=== PATIENT | male | born 1965 | race Caucasian/White ===

== ENCOUNTER 2020-01-19 17:24 | Emergency (ER) | payer SELFPAY ==
[2020-01-19 17:26] VITALS: PULSE 90; RESP 18; TEMP 36.9; O2SAT 96; BMI 22.1
[2020-01-19 18:29] VITALS: O2SAT 94
--- NOTE | 2020-01-19 18:39 | PC.NURSE ---
nurse and er physician in room to check on patient and found pt and spouse to be gone
== END 2020-01-19 18:38 | disposition left against medical advice (07) ==
LOC: ER 18:34
PROVIDERS: Emergency Provider Emergency Medicine
DX: Z53.21 Procedure and treatment not carried out due to patient leaving prior to being seen by health care provider (principal)
CPT/HCPCS: 99282

== ENCOUNTER 2020-01-29 15:45 | Emergency (ER) | payer SELFPAY ==
[2020-01-29 16:00] VITALS: BP 147/86; PULSE 81; RESP 14; TEMP 36.7; O2SAT 97; BMI 22.1
== END 2020-01-29 18:11 | disposition left against medical advice (07) ==
PROVIDERS: Emergency Provider Physician Assistant
DX: Z53.21 Procedure and treatment not carried out due to patient leaving prior to being seen by health care provider (principal)
CPT/HCPCS: 99281

== ENCOUNTER → 2022-04-28 15:16 | Outpatient (BNVA) | payer MEDICAID, SELFPAY | PROVIDERS: Referring Provider Nurse Practitioner; Visit Provider Orthopaedic Surgery | DX: M54.9 Dorsalgia, unspecified (principal); M47.22 Other spondylosis with radiculopathy, cervical region; M48.02 Spinal stenosis, cervical region; M48.061 Spinal stenosis, lumbar region without neurogenic claudication; M47.816 Spondylosis without myelopathy or radiculopathy, lumbar region | CPT/HCPCS: 72050; 72110 ==

== ENCOUNTER 2022-06-11 07:19 | Outpatient (CLI) | payer MEDICAID, SELFPAY ==
--- NOTE | 2022-06-11 08:00 | MR_ITS ---
WS: [id number] MRI CERVICAL SPINE NONCONTRAST HISTORY: Chronic neck pain radiating to both arms. COMPARISON: Cervical radiograph 04/28/2022 Technique: Multiplanar, multisequence noncontrast imaging of the cervical spine. Retrolisthesis of the mid cervical spine. C4 retrolisthesis by 2.5 mm. Marrow edema and a large porti on of the C4 and C5 vertebral bodies. Disc spaces are all moderately narrowed. Signal within the cervical cord is normal. Visualized posterior fossa is unremarkable. Craniocervical junction, C1 and C2 relationship, odontoid process and soft tissues are normal. C2-C3: RIGHT foraminal osteophyte and facet disease resulting in moderate RIGHT foraminal stenosis. C3-C4: Osteophytic ridging and annular disc bulging and facet joint arthritis resulting in mild centr al and LEFT foraminal stenosis. Moderate RIGHT foraminal stenosis. Increased edema RIGHT facets from synovitis. C4-C5: Mild disc bulging and osteophytic ridging. Mild bilateral facet joint arthritis. Mild central with [id number] foraminal stenosis. C5-C6: Osteophytic ridging with annular disc bulge. No focal protrusion. Mild central with moderate f oraminal stenosis. C6-C7: Diffuse osteophytic ridging encroaching upon the ventral thecal sac with mild facet joint arth ritis. Moderate to severe bilateral foraminal stenosis. C7-T1: Very mild facet and foraminal narrowing. Paraspinal soft tissue are normal. MR/MR cervical spin wo con* [id number] IMPRESSION: 1. Multilevel degenerative disc disease and facet joint arthritis. Multilevel stenoses due to combination of osteophyte, disc and facet disease. 2. Moderate RIGHT foraminal stenosis at C2-3. 3. Moderate RIGHT foraminal stenosis at C3-4 with mild central LEFT foraminal stenosis. 4. Mild central with mild to moderate foraminal stenosis at C4-5. 5. Moderate foraminal stenosis with mild central stenosis at C5-6. 6. Moderate to severe bilateral foraminal stenosis at C6-7.
--- NOTE | 2022-06-11 09:30 | MR_ITS ---
WS: [id number] MRI LUMBAR SPINE NONCONTRAST HISTORY: back pain COMPARISON: None available. TECHNIQUE: Sagittal and axial multisequence imaging is submitted. Mild RIGHT curvature lumbar spine. No fractures or marrow edema. Disc spaces are well preserved with only mild desiccation. Conus terminates normally at L1. L1-L2: Normal. L2-L3: Mild annular disc bulging and facet joint arthritis. There is mild narrowing and encroachment upon the exiting L2 nerve roots. No high-grade stenosis. L3-L4: Mild disc bulging. Moderate ligamentum flavum and facet arthritis. There is significant encroa chment upon the exiting nerve roots, LEFT greater than RIGHT. Moderate LEFT and mild RIGHT foraminal stenosis. L4-L5: Moderate facet joint arthritis and ligamentum flavum disease. No focal disc protrusions. Mild RIGHT and moderate LEFT foraminal stenosis. There may be a very tiny disc protrusion contributing to the LEFT foraminal stenosis. L5-S1: Mild disc bulging with a central to LEFT paracentral disc protrusion contacting the thecal sac . No significant contact on the nerve roots. Mild annular fissure. No significant foraminal stenosis. No paravertebral soft tissue abnormalities. MR/MR lumbar spine wo con* [id number] IMPRESSION: 1. Mild RIGHT curvature lumbar spine. 2. Very minimal degenerative disc disease with more advanced facet joint and l igamentum flavum arthritis of the lumbar spine. 3. Moderate LEFT and mild RIGHT foraminal stenosis at L3-4 predominantly due t o facet joint arthritis. 4. Moderate LEFT and mild RIGHT foraminal stenosis at L4-5. 5. Central to LEFT paracentral disc protrusion at L5-S1 with mild contact upon the thecal sac.
== END 2022-06-11 07:20 | disposition home or self-care (01) ==
LOC: RAD 07:23
PROVIDERS: Visit Provider Orthopaedic Surgery
DX: M54.9 Dorsalgia, unspecified (principal)
CPT/HCPCS: 72141; 72148

== ENCOUNTER 2022-06-30 15:07 | Outpatient (CLI) | payer MEDICAID, SELFPAY | END 2022-06-30 15:08 | disposition home or self-care (01) | LOC: SPT 15:08 | PROVIDERS: Visit Provider Orthopaedic Surgery | DX: Z46.89 Encounter for fitting and adjustment of other specified devices (principal); M47.12 Other spondylosis with myelopathy, cervical region | CPT/HCPCS: 97760; L0172 ==

== ENCOUNTER 2022-07-15 05:37 | Day surgery (SDC) | payer MEDICAID, SELFPAY ==
[2022-07-10 09:43] VITALS: BMI 20.7
--- NOTE | 2022-07-10 10:01 | ANES.PREANE2 ---
Pre-Anesthetic Assessment Height/Weight: Height 1.75 m Weight 63.503 kg Preop Diagnosis: Cervical spondylosis with radiculopathy Operation Date: 07/15/22 07:00 Proposed Procedures p Anterior Cervical Discectomy & Fusion:[id number], M47.12(Not Applicable) - Jose Alfredo Hernández DO s Cervical Decompression(Not Applicable) - Jose Alfredo Hernández, Familial anesthetic complications: NOne Social Alcohol (6 pack beer a night) and Tobacco Exam alert, oriented x 3, clear to auscultation bilaterally and regular rate & rhythm Airway Mallampati: Class II Dentition: chipped and loose Pulmonary Chronic Obstructive Pulmonary Disease CV/HEM Hypertension None reported Hepatic None reported GI None reported Metabolic None reported Musc/skel Lower Back Pain Neuropsych None reported Anesthetic Plan ASA status: 3 Anesthesia: General Risk of > 500 ml blood loss (7ml/kg in children): No Medications/Allergies Home Medications Medication Instructions Recorded Confirmed Last Taken Type gabapentin 100 mg capsule 100 mg PO TID 04/28/22 07/10/22 07/10/22 History lisinopril 20 mg tablet 20 mg PO DAILY 04/28/22 07/10/22 07/10/22 History Cervical Collar #1 ea 06/30/22 06/30/22 Unknown Rx Intraoperative Neuromonitoring #1 ea 06/30/22 06/30/22 Unknown Rx hydrocodone 5 mg-acetaminophen 325 1 tab PO Q6H PRN pain 7 days #30 06/30/22 07/10/22 07/10/22 Rx mg tablet tabs cetirizine 10 mg tablet 10 mg PO DAILY 07/10/22 07/10/22 07/10/22 History clindamycin HCl 300 mg capsule 300 mg PO TID 07/10/22 07/10/22 07/10/22 History Allergies Allergy/AdvReac Type Severity Reaction Status Date / Time No Known Allergies Allergy Verified 06/30/22 08:57 PFSH Anesthesia Social History Smoking and tobacco status: current every day smoker Data Anesthesia Cardiac Studies: No Data to Display
[2022-07-10 10:37] LABS: Blood Urea Nitrogen 16 mg/dL (6-20); Calcium 9.5 mg/dL (8.5-10.5); Carbon Dioxide 24 mmol/L (22-29); Chloride 100 mmol/L (98-107); Glucose 134 mg/dL (65-115); Osmolality Calculated 283 mOsm/kg (285-295); Sodium 135 mmol/L (136-145)
[2022-07-10 10:38] LABS: Anion Gap 15.5 (5-19); Potassium 4.5 mmol/L (3.5-5.1)
[2022-07-15] VITALS (14 sets, daily range): BP systolic 90–147; BP diastolic 54–97; PULSE 73–99; RESP 14–18; TEMP 36.6–36.8; O2SAT 92–97
[2022-07-15] MEDS: sodium chloride 0.9% 1,000 ML 30 ML IV (06:16)
--- NOTE | 2022-07-15 06:39 | W.PM.OPSUD ---
Surgery/Procedure H&P Update DATE OF PROCEDURE: July 15, 2022 DATE H&P PERFORMED: 06/30/22 H&P UPDATE INFORMATION: I have reviewed H&P completed within last 30 days, I have examined patient prior to procedure and No changes to prior documentation PREOP DIAGNOSIS: Cervical spondylosis with radiculopathy PLANNED PROCEDURE: Operation Date: 07/15/22 07:00 Proposed Procedures p Anterior Cervical Discectomy & Fusion:[id number], M47.12(Not Applicable) - DO javier Chow Cervical Decompression(Not Applicable) - Jose Alfredo Hernández DO
[2022-07-15] MEDS: ceFAZolin 2,000 MG in sodium chloride 0.9% (plus) 50 ML 100 MG IV (07:02)
[2022-07-15] MEDS: lidocaine-epi 1% 20 mL INJ INJECTION (07:33)
--- NOTE | 2022-07-15 09:27 | XR_ITS ---
WS: [id number] XR cervical spine 1V [id number] REASON FOR EXAM: or pics FINDINGS: Intraoperative images. Anterior plate and screw fixation C4-C7 with interbody fusion devices at C4-5, C5-C6, and C6-C7. Surgical appliances are in proper position and alignment. XR/XR cervical spine 1V [id number] IMPRESSION: Postoperative cervical spine as above without abnormality.
--- NOTE | 2022-07-15 09:35 | PM.OP ---
Operative Report Date of procedure: July 15, 2022 Pre-op diagnosis: Preop Diagnosis Cervical spondylosis with radiculopathy Post-op diagnosis: same Post-op findings: same Procedure done: 1. Anterior diskectomy C4/5 2. Anterior diskectomy C5/6 3. Anterior discectomy C6/7 4. Insertion of cage C4/5 5. Insertion of cage C5/6 6. Insertion of Cage C6/7 7. Instrumentation with anterior plate from C4-C7 8. Use of allograft Surgeon: Jose Alfredo Hernández [employer]: Dedrick Perez [employer]: The surgical services manager, Dedrick Perez, PAC was needed for his expertise under the microscope. He was important and necessary throughout the procedure to complete in a safe and timely manner. He assisted with patient positioning prepping and draping tissue retraction suctioning of the operative field protection of the dural sac and tissue closure Estimated blood loss (mL): 25 Procedure: 1. Anterior diskectomy C4/5 2. Anterior diskectomy C5/6 3. Anterior discectomy C6/7 4. Insertion of cage C4/5 5. Insertion of cage C5/6 6. Insertion of Cage C6/7 7. Instrumentation with anterior plate from C4-C7 8. Use of allograft The patient was taken to the operating room, where he underwent general endotracheal anesthesia without complications. He was then positioned supine on the operating table, and all areas of impingement were well padded. The arms were carefully padded and tucked at his sides. A roll was placed between the shoulder blades.. An x-ray was done to determine the appropriate level for the skin incision. The entire neck was then sterilely prepped and draped in the usual fashion. Neuromonitoring was attached prior to prepping. A transverse skin incision was made and carried down to the platysma muscle. This was then split in line with its fibers. Blunt dissection was carried down medial to the carotid sheath and lateral to the trachea and esophagus until the anterior cervical spine was visualized. A needle was placed into a disc and an x-ray was done to determine its location. The longus colli muscles were then elevated bilaterally with the electrocautery unit. Self-retaining retractors were placed deep to the longus colli muscle. Attention was brought to the C4/5 level that was confirmed on x-ray. A caspar pin was placed into the C4 vertebrae and the C5 vertebrae. The disk space was then distracted. The microscope was then brought in. A radical anterior discectomies were performed at C4/5. This included complete removal of the anterior annulus, nucleus, and posterior annulus. The posterior longitudinal ligament was removed as were the posterior osteophytes. Foraminotomies were then accomplished bilaterally. This was done using a high speed raúl, kerrison rongeurs and curretes Once all of this was accomplished, the curved currette was used to check for any residual compression. The central canal was wide open as were the foramen. A high-speed bur was used to remove the cartilaginous endplates above and below the interspace. Bleeding cancellous bone was exposed. The disc space were measured and appropriate size cage were placed sterilely onto the field. Allograft graft was packed into the cages. The cage was then placed and there was good juxtaposition against the bleeding decorticated surfaces and good distraction of each interspace. Attention was brought to the next interspace. The Leakey pins were removed. Bone wax was used to prevent any bleeding from occurring at the pin sites. Attention was brought to the C5/6 level that was confirmed on x-ray. A caspar pin was placed into the C5 vertebrae and the C6 vertebrae. The disk space was then distracted. The microscope was then brought in. A radical anterior discectomies were performed at C5/6. This included complete removal of the anterior annulus, nucleus, and posterior annulus. The posterior longitudinal ligament was removed as were the posterior osteophytes. Foraminotomies were then accomplished bilaterally. This was done using a high speed raúl, kerrison rongeurs and curretes Once all of this was accomplished, the curved currette was used to check for any residual compression. The central canal was wide open as were the foramen. A high-speed bur was used to remove the cartilaginous endplates above and below the interspace. Bleeding cancellous bone was exposed. The disc space were measured and appropriate size cage were placed sterilely onto the field. Allograft graft was packed into the cages. The cage was then placed and there was good juxtaposition against the bleeding decorticated surfaces and good distraction of each interspace. Attention was brought to the next interspace. The Leakey pins were removed. Bone wax was used to prevent any bleeding from occurring at the pin sites. Attention was brought to the C6/7 level that was confirmed on x-ray. A caspar pin was placed into the C6 vertebrae and the C7 vertebrae. The disk space was then distracted. The microscope was then brought in. A radical anterior discectomies were performed at C6/7. This included complete removal of the anterior annulus, nucleus, and posterior annulus. The posterior longitudinal ligament was removed as were the posterior osteophytes. Foraminotomies were then accomplished bilaterally. This was done using a high speed raúl, kerrison rongeurs and curretes Once all of this was accomplished, the curved currette was used to check for any residual compression. The central canal was wide open as were the foramen. A high-speed bur was used to remove the cartilaginous endplates above and below the interspace. Bleeding cancellous bone was exposed. The disc space were measured and appropriate size cage were placed sterilely onto the field. Allograft graft was packed into the cages. The cage was then placed and there was good juxtaposition against the bleeding decorticated surfaces and good distraction of each interspace. Attention was brought to the next interspace. The Leakey pins were removed. Bone wax was used to prevent any bleeding from occurring at the pin sites. The appropriate size anterior cervical locking plate was chosen and bent into gentle lordosis. Two screws were then placed into each of the vertebral bodies at C4,C5,C6 and C7. There was excellent purchase. A final x-ray was done confirming good position of the hardware and Cages. The locking screws were then applied, also with excellent purchase. Following a final copious irrigation, there was good hemostasis and no dural leaks. The carotid pulse was strong. The wounds were then closed in layers using 2-0 Vicryl suture for the platysma muscle, 2-0 Vicryl suture for the subcutaneous tissue, and 4-0 monocryl suture in a subcuticular skin closure. Glue was placed followed by application of a sterile dressing. The drain was hooked to bulb suction. A soft collar was applied. The patient was then carefully returned to the supine position on his hospital bed where he was reversed and extubated and taken to the recovery room having tolerated the procedure well.
--- NOTE | 2022-07-15 09:43 | P.PCN_ITS ---
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
--- NOTE | 2022-07-15 09:43 | PM.PACU ---
PACU note Narrative: VSS, Good respiratory effort, report to CRM SPECIALIST Exam: awake
[2022-07-15] MEDS: fentaNYL 50 mcg/mL INJ 2mL IVP (10:00)
--- NOTE | 2022-07-15 10:03 | P.ANESUD_ITS ---
Pre-Anesthetic Update Pre-Anesthetic Assessment: Date of Surgery/Procedure: 07/15/22 Preop Yesi gnosis: Cervical spondylosis with radiculopathy Proposed Procedure: Operation Date: 07/15/22 07:00 Proposed Procedures p Anterior Cervical Discectomy & Fusion:[id number], M47.12(Not Applicable) - Jose Alfredoaudie Hernández, DO s Cervical Decompression(Not Applicable) - Jose Alfredoaudie Hernández, DO Any changes to Pre-Anesthetic Assessment?: No Last Intake: Intake Last Liquid Date 07/14/22 Last Liquid Time 19:00 Last Solid Date 07/14/22 Last Solid Time 17:00 Vitals: Temperature 98.1 F 07/15/22 09:25 Temperature Source Temporal Artery S can 07/15/22 09:25 Pulse Rate 75 07/15/22 09:45 Respiratory Rate 14 07/15/22 09:45 Blood Pressure 118/66 07/15/22 09:45 Blood Pressure Ashley n 83 07/15/22 09:45 Pulse Oximetry 97 07/15/22 09:45 Oxygen Delivery Me thod 07/15/22 09:45 Oxygen Flow Rate 6 07/15/22 09:45 Exam: Pre-Anes Outpt Exam: alert, oriented x 3, clear to auscultation bilaterally and regular rate & rhythm Cardiac Studies: No Data to Display
[2022-07-15] MEDS: HYDROcodone-acetaminophen 10-325 mg Tablet 1 TAB PO (10:42)
--- NOTE | 2022-07-15 15:26 | ANE.PACU2 ---
Inpatient post-anesthesia follow up: Airway intact: Yes Vital signs: Temperature 97.9 F Pulse Rate 85 Respiratory Rate 16 Blood Pressure 126/82 Pulse Oximetry 93 Oxygen Delivery Me thod Room Air Oxygen Flow Rate 6 Fraction of Inspir ed Oxygen Hydration adequate: Yes Nausea and vomiting: No Pain level: 3 Mental status: Baseline
== END 2022-07-15 11:00 | disposition home or self-care (01) ==
PROVIDERS: Anesthesiology; PCP Nurse Practitioner; Visit Provider Orthopaedic Surgery
PROC: 0RB30ZZ Excision of Cervical Vertebral Disc, Open Approach (ICD-10-PCS; CPT 22551; principal; 2022-07-15 07:00)
PROC: (CPT 63001; 2022-07-15 07:00)
DX: M47.22 Other spondylosis with radiculopathy, cervical region (principal); M47.12 Other spondylosis with myelopathy, cervical region; M48.02 Spinal stenosis, cervical region; I10 Essential (primary) hypertension; J44.9 Chronic obstructive pulmonary disease, unspecified; F17.210 Nicotine dependence, cigarettes, uncomplicated; Z79.52 Long term (current) use of systemic steroids
CPT/HCPCS: 20930; 22551; 22552 ×2; 22846; 22853 ×3; 61783; 36415; 72020; 76000; 80048; C1713; C9359; J0690; J1100; J1170; J2405; J2704; J2710; J3010; J3490; J7030

== ENCOUNTER 2022-07-16 15:49 | Emergency (ER) | payer MEDICAID, SELFPAY ==
[2022-07-16 16:05] VITALS: BP 132/87; PULSE 87; RESP 16; TEMP 37.2; O2SAT 94
[2022-07-16 16:25] VITALS: BP 138/87; PULSE 91; RESP 16; TEMP 37.4; O2SAT 95
--- NOTE | 2022-07-16 16:48 | CTR_ITS ---
PROCEDURE INFORMATION: Exam: CT Neck With Contrast Exam date and time: 07/16/2022 5:16 PM Age: 56 years old Clinical indication: Dysphagia / difficulty swallowing and dyspnea / difficulty breathing; Neck pain and painful swallowing; Prior surgery; Surgery date: Post-operative (0-2 days); Surgery type: Cervical spine; Additional info: Pain/swelling/trouble swallowing, anterior approach acdf yesterday TECHNIQUE: Imaging protocol: Computed tomography of the neck with contrast. Radiation optimization: All CT scans at this facility use at least one of these dose optimization techniques: automated exposure control; mA and/or kV adjustment per patient size (includes targeted exams where dose is matched to clinical indication); or iterative reconstruction. Contrast material: OMNI 350; Contrast volume: 100 ml; Contrast route: INTRAVENOUS (IV); REPORTING DATA: Count of CT and Cardiac NM exams in prior 12 months: This patient has received 0 known CTs and 0 known cardiac nuclear medicine studies in the 12 months prior to the current study. COMPARISON: MR cervical spin wo con* [id number] 06/11/2022 8:35 AM RADIATION DOSE METRICS: Total DLP (mGy-cm): 258.17 FINDINGS: Paranasal sinuses: Paranasal sinus opacifications. Pharynx: Unremarkable. No significant tonsillar enlargement. Larynx: Unremarkable. Epiglottis is normal. Prevertebral and retropharyngeal spaces: Unremarkable. Salivary glands: Normal. Glands are normal in size. Thyroid: Normal. No enlarged or calcified nodules. Lymph nodes: Unremarkable. No lymphadenopathy. Trachea: Visualized trachea is unremarkable. Lungs: Emphysematous changes in the lung molina. Bones/joints: Anterior cervical discectomy and fusion changes seen in place at C3/4/5/6. Soft tissues: Somewhat diffuse subcutaneous emphysema and edema seen about the neck along with a small amount of prevertebral fluid without focal peripherally enhancing fluid collection to suggest an abscess, findings likely reflect postsurgical changes. CT/CT neck w con* [id number] IMPRESSION: 1. Somewhat diffuse subcutaneous emphysema and edema seen about the neck along with a small amount of prevertebral fluid without focal peripherally enhancing fluid collection to suggest an abscess, findings likely reflect postsurgical changes. 2. Anterior cervical discectomy and fusion changes seen in place at C3/4/5/6. 3. Emphysematous changes in the lung molina. 4. Paranasal sinus opacifications.
--- NOTE | 2022-07-16 16:50 | W.ED.NECK ---
Documented by User: [email or web address] Chaudhary 07/20/22 07:03 HPI - Neck Pain/Injury General: Chief Complaint: Neck Pain/Injury Stated Complaint: surgery yesterday, neck is swelling/cant swallow Time Seen by Provider: 07/16/22 16:19 Source: patient Mode of arrival: ambulatory Limitations: no limitations History of Present Illness: Patient is a very nice 56-year-old male who presents to ED today with a complaint of neck pain. Patient feels like his neck is swollen and he is having trouble swallowing. He is status post surgery by Dr. Hernández yesterday. Dr. Hernández performed the following procedures: 1.? Anterior diskectomy C4/5 2.? Anterior diskectomy C5/6 3.? Anterior discectomy C6/7 4.? Insertion of cage C4/5 5.? Insertion of cage C5/6 6.? Insertion of Cage C6/7 7.? Instrumentation with anterior plate from C4-C7 8.? Use of allograft MD complaint: neck pain and other (recent surgery) Onset (ago): hour(s) Severity: moderate Duration: constant Relieving factors: none Exacerbating factors: swallowing Context: other (recent surgery) Associated symptoms: Reports dysphagia; Denies dizziness or headache(s) Review of Systems Const: Denies: fever(s), chills, body aches, fatigue or malaise Card: Denies: chest pain Resp: Denies: dyspnea GI: Reports: dysphagia; Denies: abdominal pain Musc: Reports: neck pain; Denies: back pain, extremity pain or joint pain Skin/Breast: Denies: rash Neuro: Denies: headache(s), numbness in extremities, weakness in extremities, sensory changes or dizziness [facility] ED PFSH: Social History Smoking and tobacco status: current every day smoker Physical Exam Const: COMMON NORMALS: no acute distress, average body habitus, patient oriented x3, no limitations, healthy appearing, alert and well nourished ORIENTATION/CONSCIOUSNESS: Yes awake, Yes oriented to person, Yes oriented to place and Yes oriented to time HENMT: COMMON NORMALS: normocephalic and atraumatic HEAD & SCALP: normal to inspection, normocephalic and atraumatic Neck/C-Spine: OTHER: anterior vertical incision looks clean-small amount of blood noted on dressing; appears to have some generalized edema and some mild erythema/warmth to anterior neck; ROM testing not performed due to recent surgery Resp: COMMON NORMALS: normal respiratory effort and clear to auscultation bilaterally AUSCULTATION: clear to auscultation bilaterally Cardio: COMMON NORMALS: regular rate and regular rhythm RATE: regular rate RHYTHM: regular rhythm Neuro: COMMON NORMALS: patient oriented x3 SENSORIUM/ORIENTATION: Yes alert, Yes oriented to person, Yes oriented to place and Yes oriented to time Course Vital Signs: Vital signs: Vital Signs Temperature 99.3 F 07/16/22 16:25 Pulse Rate 86 07/16/22 19:06 Respiratory Rate 17 07/16/22 19:06 Blood Pressure 130/85 07/16/22 19:06 Pulse Oximetry 95 07/16/22 19:06 Oxygen Delivery Me thod 07/16/22 19:06 MDM - Neck Pain/Injury Medical Decision Making Care transferred to [place] Martinez, [facility] at shift change pend CT imaging. ES Lab Data 07/16/22 16:55 07/16/22 16:[address] 07/16/22 16:48 IMPRESSION: 1. Somewhat diffuse subcutaneous emphysema and edema seen about the neck along with a small amount of prevertebral fluid without focal peripherally enhancing fluid collection to suggest an abscess, findings likely reflect postsurgical changes. 2. Anterior cervical discectomy and fusion changes seen in place at C3/4/5/6. 3. Emphysematous changes in the lung molina. 4. Paranasal sinus opacifications. Laboratory Results WBC 13.2 10^3/uL (4.0-10.0) H 07/16/22 16:55 RBC 4.48 10^6/uL (4.1-5.3) 07/16/22 16:55 Hgb 14.8 g/dL (11.7-16.6) 07/16/22 16:55 Hct 43.3 % (42.0-52.0) 07/16/22 16:55 MCV 96.7 fl (80-94) H 07/16/22 16:55 MCH 33.0 pg (28.0-34.0) 07/16/22 16:55 MCHC 34.2 g/dL (30.0-36.0) 07/16/22 16:55 RDW 13.3 % (12.1-15.1) 07/16/22 16:55 Plt Count 158 10^3/cmm (130-400) 07/16/22 16:55 MPV 9.8 fL (7.4-10.4) 07/16/22 16:55 Neut % (Auto) 75.6 % 07/16/22 16:55 Lymph % (Auto) 14.6 % 07/16/22 16:55 [place] % (Auto) 9.2 % 07/16/22 16:55 Eos % (Auto) 0.2 % 07/16/22 16:55 Baso % (Auto) 0.2 % 07/16/22 16:55 Neut # (Auto) 9.95 10^3/uL (1.8-7.7) H 07/16/22 16:55 Lymph # (Auto) 1.9 10^3/uL (0.8-4.8) 07/16/22 16:55 [place] # (Auto) 1.2 10^3/uL (0.2-0.9) H 07/16/22 16:55 Eos # (Auto) 0.0 10^3/uL (0.0-0.8) 07/16/22 16:55 Baso # (Auto) 0.0 10^3/uL (0.0-0.1) 07/16/22 16:55 Nucleated RBC % (auto) 0 % 07/16/22 16:55 Nucleated RBCs # 0.0 /100WBC 07/16/22 16:55 Sodium 136 mmol/L (136-145) 07/16/22 16:55 Potassium 4.1 mmol/L (3.5-5.1) 07/16/22 16:55 Chloride 100 mmol/L (98-107) 07/16/22 16:55 Carbon Dioxide 25 mmol/L (22-29) 07/16/22 16:55 Anion Gap 15.1 (5-19) 07/16/22 16:55 BUN 8 mg/dL (6-20) 07/16/22 16:55 Creatinine 0.7 mg/dL (0.7-1.2) 07/16/22 16:55 GFR Calculation 116.7 mL/min (90-130) 07/16/22 16:55 Glucose 118 mg/dL (65-115) H 07/16/22 16:55 Calculated Osmolality 281 mOsm/kg (285-295) L 07/16/22 16:55 Calcium 9.2 mg/dL (8.5-10.5) 07/16/22 16:55 Total Bilirubin 0.8 mg/dL (0.15-1.2) 07/16/22 16:55 AST 24 U/L (0-40) 07/16/22 16:55 ALT 15 U/L (0-41) 07/16/22 16:55 Alkaline Phosphatase 59 U/L (40-130) 07/16/22 16:55 Total Protein 6.7 g/dL (6.6-8.7) 07/16/22 16:55 Albumin 4.1 g/dL (3.5-5.2) 07/16/22 16:55 Globulin 2.6 g/dL (1.3-4.6) 07/16/22 16:55 Discharge Plan Discharge Patient Disposition: Home Clinical Impression: Post-operative pain Condition: Stable Prescriptions: No Action gabapentin 100 mg capsule 100 mg PO TID lisinopril 20 mg tablet 20 mg PO DAILY (DME) Cervical Collar See Rx Instructions .Route .MEDSUPPLY Qty: 1 0RF Rx Instructions: As directed (DME) Intraoperative Neuromonitoring See Rx Instructions .Route .MEDSUPPLY Qty: 1 0RF Rx Instructions: As directed hydrocodone-acetaminophen 5-325 mg tablet 1 tab PO Q6H PRN (Reason: pain) 7 Days Qty: 30 0RF (DME) Bone Growth Stimulator E0748 See Rx Instructions .Route .MEDSUPPLY Qty: 1 0RF Rx Instructions: As directed clindamycin HCl 300 mg capsule 300 mg PO TID Rx Instructions: taking for 7 days starting 07/09 cetirizine 10 mg tablet 10 mg PO DAILY Discharge Orders: Discharge ED (Routine); Ordered 07/16/22 Ordered By: Mary Jane Martinez Referrals: Ciro Funez, [employer] [facility] [Primary Care Provider] - Discharge Diet: As Directed Discharge Activity: Limit activity as instructed Activity Restrictions/Additional Instructions: Your CT result did not show any hematoma collection or abscess formation. The swelling noted in the neck appears to be postsurgical changes that would be expected. Dr. Hernández was advised of the CT results and said that it would be very typical for you to feel as though it is difficult to swallow for a couple of days postop. He recommended cold liquids, ice cream, popsicles, and to crushed your pain medication if needed so that you are able to take it. Follow-up with Dr. Hernández as directed. Return to the ER for any new or worsening symptoms Coding Level of Care Code ED Armature Connector for Chg Fwd Documented by User: RUBY Weeks 07/23/22 17:09 HPI - Neck Pain/Injury General: Chief Complaint: Neck Pain/Injury Stated Complaint: surgery yesterday, neck is swelling/cant swallow Time Seen by Provider: 07/16/22 16:19 PFSH ED PFSH: Social History Smoking and tobacco status: current every day smoker Course ED course: 1709?care of patient assumed from Gaby. Agree with above assessment. Awaiting results of CT scan. 180?CT scan is reviewed shows: Somewhat diffuse subcutaneous emphysema and edema seen about the neck along with a small amount of prevertebral fluid without focal peripherally enhancing fluid collection to suggest an abscess, findings likely reflect postsurgical changes. Dr. Hernández is paged. 1833?CT results read back to Dr. Hernández and advised him of patient's complaint of being unable to swallow or even take his pain medication and his pain level [address] Hernández advised that it is not uncommon to feel like you cannot swallow for the first couple of days due to swelling. He recommends ice cream, popsicles, soft things and crushing pain pills if needed. Vital Signs: Vital signs: Vital Signs Temperature 99.3 F 07/16/22 16:25 Pulse Rate 86 07/16/22 19:06 Respiratory Rate 17 07/16/22 19:06 Blood Pressure 130/85 07/16/22 19:06 Pulse Oximetry 95 07/16/22 19:06 Oxygen Delivery Me thod 07/16/22 19:06 MDM - Neck Pain/Injury Medical Decision Making Care transferred to [facility] at shift change pend CT imaging. ES CT imaging is reviewed. I called and discussed patient's complaints, physical exam findings, CT results with Dr. Hernández. He advised patient symptoms are common status post the surgical procedure that he had. He recommends conservative treatment at home including soft diet, cold liquids, crushing pain pills as needed. He recommends follow-up as previously scheduled with him. I discussed all of this with the patient and he is very agreeable with plan of care. Advised him to return to the ER as needed for new or worsening symptoms Lab Data 07/16/22 16:55 07/16/22 16:[address] 07/16/22 16:48 IMPRESSION: 1. Somewhat diffuse subcutaneous emphysema and edema seen about the neck along with a small amount of prevertebral fluid without focal peripherally enhancing fluid collection to suggest an abscess, findings likely reflect postsurgical changes. 2. Anterior cervical discectomy and fusion changes seen in place at C3/4/5/6. 3. Emphysematous changes in the lung molina. 4. Paranasal sinus opacifications. Laboratory Results WBC 13.2 10^3/uL (4.0-10.0) H 07/16/22 16:55 RBC 4.48 10^6/uL (4.1-5.3) 07/16/22 16:55 Hgb 14.8 g/dL (11.7-16.6) 07/16/22 16:55 Hct 43.3 % (42.0-52.0) 07/16/22 16:55 MCV 96.7 fl (80-94) H 07/16/22 16:55 MCH 33.0 pg (28.0-34.0) 07/16/22 16:55 MCHC 34.2 g/dL (30.0-36.0) 07/16/22 16:55 RDW 13.3 % (12.1-15.1) 07/16/22 16:55 Plt Count 158 10^3/cmm (130-400) 07/16/22 16:55 MPV 9.8 fL (7.4-10.4) 07/16/22 16:55 Neut % (Auto) 75.6 % 07/16/22 16:55 Lymph % (Auto) 14.6 % 07/16/22 16:55 [place] % (Auto) 9.2 % 07/16/22 16:55 Eos % (Auto) 0.2 % 07/16/22 16:55 Baso % (Auto) 0.2 % 07/16/22 16:55 Neut # (Auto) 9.95 10^3/uL (1.8-7.7) H 07/16/22 16:55 Lymph # (Auto) 1.9 10^3/uL (0.8-4.8) 07/16/22 16:55 [place] # (Auto) 1.2 10^3/uL (0.2-0.9) H 07/16/22 16:55 Eos # (Auto) 0.0 10^3/uL (0.0-0.8) 07/16/22 16:55 Baso # (Auto) 0.0 10^3/uL (0.0-0.1) 07/16/22 16:55 Nucleated RBC % (auto) 0 % 07/16/22 16:55 Nucleated RBCs # 0.0 /100WBC 07/16/22 16:55 Sodium 136 mmol/L (136-145) 07/16/22 16:55 Potassium 4.1 mmol/L (3.5-5.1) 07/16/22 16:55 Chloride 100 mmol/L (98-107) 07/16/22 16:55 Carbon Dioxide 25 mmol/L (22-29) 07/16/22 16:55 Anion Gap 15.1 (5-19) 07/16/22 16:55 BUN 8 mg/dL (6-20) 07/16/22 16:55 Creatinine 0.7 mg/dL (0.7-1.2) 07/16/22 16:55 GFR Calculation 116.7 mL/min (90-130) 07/16/22 16:55 Glucose 118 mg/dL (65-115) H 07/16/22 16:55 Calculated Osmolality 281 mOsm/kg (285-295) L 07/16/22 16:55 Calcium 9.2 mg/dL (8.5-10.5) 07/16/22 16:55 Total Bilirubin 0.8 mg/dL (0.15-1.2) 07/16/22 16:55 AST 24 U/L (0-40) 07/16/22 16:55 ALT 15 U/L (0-41) 07/16/22 16:55 Alkaline Phosphatase 59 U/L (40-130) 07/16/22 16:55 Total Protein 6.7 g/dL (6.6-8.7) 07/16/22 16:55 Albumin 4.1 g/dL (3.5-5.2) 07/16/22 16:55 Globulin 2.6 g/dL (1.3-4.6) 07/16/22 16:55 Discharge Plan Discharge Patient Disposition: Home Clinical Impression: Post-operative pain Condition: Stable Prescriptions: No Action gabapentin 100 mg capsule 100 mg PO TID lisinopril 20 mg tablet 20 mg PO DAILY (DME) Cervical Collar See Rx Instructions .Route .MEDSUPPLY Qty: 1 0RF Rx Instructions: As directed (DME) Intraoperative Neuromonitoring See Rx Instructions .Route .MEDSUPPLY Qty: 1 0RF Rx Instructions: As directed hydrocodone-acetaminophen 5-325 mg tablet 1 tab PO Q6H PRN (Reason: pain) 7 Days Qty: 30 0RF (DME) Bone Growth Stimulator E0748 See Rx Instructions .Route .MEDSUPPLY Qty: 1 0RF Rx Instructions: As directed clindamycin HCl 300 mg capsule 300 mg PO TID Rx Instructions: taking for 7 days starting 07/09 cetirizine 10 mg tablet 10 mg PO DAILY Discharge Orders: Discharge ED (Routine); Ordered 07/16/22 Ordered By: Mary Jane Martinez Referrals: Ciro Funez, [employer] [facility] [Primary Care Provider] - Discharge Diet: As Directed Discharge Activity: Limit activity as instructed Activity Restrictions/Additional Instructions: Your CT result did not show any hematoma collection or abscess formation. The swelling noted in the neck appears to be postsurgical changes that would be expected. Dr. Hernández was advised of the CT results and said that it would be very typical for you to feel as though it is difficult to swallow for a couple of days postop. He recommended cold liquids, ice cream, popsicles, and to crushed your pain medication if needed so that you are able to take it. Follow-up with Dr. Hernández as directed. Return to the ER for any new or worsening symptoms Coding Level of Care Code ED Armature Connector for Chg Fwd Documented by User: Terry Lovell DO 07/23/22 17:27 HPI - Neck Pain/Injury General: Chief Complaint: Neck Pain/Injury Stated Complaint: surgery yesterday, neck is swelling/cant swallow Time Seen by Provider: 07/16/22 16:19 PFSH ED PFSH: Social History Smoking and tobacco status: current every day smoker Course Vital Signs: Vital signs: Vital Signs Temperature 99.3 F 07/16/22 16:25 Pulse Rate 86 07/16/22 19:06 Respiratory Rate 17 07/16/22 19:06 Blood Pressure 130/85 07/16/22 19:06 Pulse Oximetry 95 07/16/22 19:06 Oxygen Delivery Me thod 07/16/22 19:06 MDM - Neck Pain/Injury Medical Decision Making Care transferred to [facility], [facility] at shift change pend CT imaging. ES CT imaging is reviewed. I called and discussed patient's complaints, physical exam findings, CT results with Dr. Hernández. He advised patient symptoms are common status post the surgical procedure that he had. He recommends conservative treatment at home including soft diet, cold liquids, crushing pain pills as needed. He recommends follow-up as previously scheduled with him. I discussed all of this with the patient and he is very agreeable with plan of care. Advised him to return to the ER as needed for new or worsening symptoms Chart reviewed and patient discussed with midlevel. Agree with assessment and plan. Lab Data 07/16/22 16:55 07/16/22 16:[address] 07/16/22 16:48 IMPRESSION: 1. Somewhat diffuse subcutaneous emphysema and edema seen about the neck along with a small amount of prevertebral fluid without focal peripherally enhancing fluid collection to suggest an abscess, findings likely reflect postsurgical changes. 2. Anterior cervical discectomy and fusion changes seen in place at C3/4/5/6. 3. Emphysematous changes in the lung molina. 4. Paranasal sinus opacifications. Laboratory Results WBC 13.2 10^3/uL (4.0-10.0) H 07/16/22 16:55 RBC 4.48 10^6/uL (4.1-5.3) 07/16/22 16:55 Hgb 14.8 g/dL (11.7-16.6) 07/16/22 16:55 Hct 43.3 % (42.0-52.0) 07/16/22 16:55 MCV 96.7 fl (80-94) H 07/16/22 16:55 MCH 33.0 pg (28.0-34.0) 07/16/22 16:55 MCHC 34.2 g/dL (30.0-36.0) 07/16/22 16:55 RDW 13.3 % (12.1-15.1) 07/16/22 16:55 Plt Count 158 10^3/cmm (130-400) 07/16/22 16:55 MPV 9.8 fL (7.4-10.4) 07/16/22 16:55 Neut % (Auto) 75.6 % 07/16/22 16:55 Lymph % (Auto) 14.6 % 07/16/22 16:55 [place] % (Auto) 9.2 % 07/16/22 16:55 Eos % (Auto) 0.2 % 07/16/22 16:55 Baso % (Auto) 0.2 % 07/16/22 16:55 Neut # (Auto) 9.95 10^3/uL (1.8-7.7) H 07/16/22 16:55 Lymph # (Auto) 1.9 10^3/uL (0.8-4.8) 07/16/22 16:55 [place] # (Auto) 1.2 10^3/uL (0.2-0.9) H 07/16/22 16:55 Eos # (Auto) 0.0 10^3/uL (0.0-0.8) 07/16/22 16:55 Baso # (Auto) 0.0 10^3/uL (0.0-0.1) 07/16/22 16:55 Nucleated RBC % (auto) 0 % 07/16/22 16:55 Nucleated RBCs # 0.0 /100WBC 07/16/22 16:55 Sodium 136 mmol/L (136-145) 07/16/22 16:55 Potassium 4.1 mmol/L (3.5-5.1) 07/16/22 16:55 Chloride 100 mmol/L (98-107) 07/16/22 16:55 Carbon Dioxide 25 mmol/L (22-29) 07/16/22 16:55 Anion Gap 15.1 (5-19) 07/16/22 16:55 BUN 8 mg/dL (6-20) 07/16/22 16:55 Creatinine 0.7 mg/dL (0.7-1.2) 07/16/22 16:55 GFR Calculation 116.7 mL/min (90-130) 07/16/22 16:55 Glucose 118 mg/dL (65-115) H 07/16/22 16:55 Calculated Osmolality 281 mOsm/kg (285-295) L 07/16/22 16:55 Calcium 9.2 mg/dL (8.5-10.5) 07/16/22 16:55 Total Bilirubin 0.8 mg/dL (0.15-1.2) 07/16/22 16:55 AST 24 U/L (0-40) 07/16/22 16:55 ALT 15 U/L (0-41) 07/16/22 16:55 Alkaline Phosphatase 59 U/L (40-130) 07/16/22 16:55 Total Protein 6.7 g/dL (6.6-8.7) 07/16/22 16:55 Albumin 4.1 g/dL (3.5-5.2) 07/16/22 16:55 Globulin 2.6 g/dL (1.3-4.6) 07/16/22 16:55 Discharge Plan Discharge Patient Disposition: Home Clinical Impression: Post-operative pain Condition: Stable Prescriptions: No Action gabapentin 100 mg capsule 100 mg PO TID lisinopril 20 mg tablet 20 mg PO DAILY (DME) Cervical Collar See Rx Instructions .Route .MEDSUPPLY Qty: 1 0RF Rx Instructions: As directed (DME) Intraoperative Neuromonitoring See Rx Instructions .Route .MEDSUPPLY Qty: 1 0RF Rx Instructions: As directed hydrocodone-acetaminophen 5-325 mg tablet 1 tab PO Q6H PRN (Reason: pain) 7 Days Qty: 30 0RF (DME) Bone Growth Stimulator E0748 See Rx Instructions .Route .MEDSUPPLY Qty: 1 0RF Rx Instructions: As directed clindamycin HCl 300 mg capsule 300 mg PO TID Rx Instructions: taking for 7 days starting 07/09 cetirizine 10 mg tablet 10 mg PO DAILY Discharge Orders: Discharge ED (Routine); Ordered 07/16/22 Ordered By: Mary Jane Martinez Referrals: Ciro Funez FNP [Primary Care Provider] - Discharge Diet: As Directed Discharge Activity: Limit activity as instructed Activity Restrictions/Additional Instructions: Your CT result did not show any hematoma collection or abscess formation. The swelling noted in the neck appears to be postsurgical changes that would be expected. Dr. Hernández was advised of the CT results and said that it would be very typical for you to feel as though it is difficult to swallow for a couple of days postop. He recommended cold liquids, ice cream, popsicles, and to crushed your pain medication if needed so that you are able to take it. Follow-up with Dr. Hernández as directed. Return to the ER for any new or worsening symptoms Coding Level of Care Code ED Armature Connector for Len Gabriel
[2022-07-16] MEDS: ondansetron 2 mg/ML SDV 2 mL 4 MG IVP (17:02)
[2022-07-16 17:03] VITALS: RESP 18; O2SAT 95
[2022-07-16] MEDS: morphine 4 mg/mL SDV 1 mL IVP (17:03)
[2022-07-16 17:06] LABS: Basophils % 0.2 %; Eosinophils % 0.2 %; Hematocrit 43.3 % (42.0-52.0); Hemoglobin 14.8 g/dL (11.7-16.6); Lymphocytes # 1.9 10^3/uL (0.8-4.8); Lymphocytes % 14.6 %; Mean Corpuscular HGB Conc 34.2 g/dL (30.0-36.0); Mean Corpuscular Volume 96.7 fl (80-94); Mean Platelet Volume 9.8 fL (7.4-10.4); Monocytes # 1.2 10^3/uL (0.2-0.9); Monocytes % 9.2 %; Neutrophils # 9.95 10^3/uL (1.8-7.7); Neutrophils % 75.6 %; Nucleated Red Blood Cells % 0 %; Platelet Count 158 10^3/cmm (130-400); Red Blood Count 4.48 10^6/uL (4.1-5.3); Red Cell Distribution Width 13.3 % (12.1-15.1); White Blood Count 13.2 10^3/uL (4.0-10.0)
[2022-07-16] MEDS: iohexol 350 mg/mL 500 mL Btl (per mL) IV (17:20)
[2022-07-16 17:25] LABS: Alanine Aminotransferase 15 U/L (0-41); Albumin Level 4.1 g/dL (3.5-5.2); Alkaline Phosphatase 59 U/L (40-130); Anion Gap 15.1 (5-19); Aspartate Amino Transferase 24 U/L (0-40); Blood Urea Nitrogen 8 mg/dL (6-20); Calcium 9.2 mg/dL (8.5-10.5); Carbon Dioxide 25 mmol/L (22-29); Chloride 100 mmol/L (98-107); Globulin 2.6 g/dL (1.3-4.6); Glomerular Filtration Rate 116.7 mL/min (90-130); Glucose 118 mg/dL (65-115); Osmolality Calculated 281 mOsm/kg (285-295); Potassium 4.1 mmol/L (3.5-5.1); Sodium 136 mmol/L (136-145); Total Bilirubin 0.8 mg/dL (0.15-1.2); Total Protein 6.7 g/dL (6.6-8.7)
[2022-07-16] MEDS: dexamethasone 10 mg/mL INJ IVP (17:46)
[2022-07-16 19:06] VITALS: BP 130/85; PULSE 86; RESP 17; O2SAT 95
== END 2022-07-16 19:07 | disposition home or self-care (01) ==
PROVIDERS: Emergency Provider Physician Assistant; PCP Nurse Practitioner
DX: G89.18 Other acute postprocedural pain (principal); F17.210 Nicotine dependence, cigarettes, uncomplicated; J43.9 Emphysema, unspecified
CPT/HCPCS: 70491; 80053; 85025; 96374; 96375; 99285; J1100; J2270; J2405; Q9967

== ENCOUNTER → 2022-07-28 11:03 | Outpatient (BNVA) | payer MEDICAID, SELFPAY | PROVIDERS: PCP Nurse Practitioner; Visit Provider Orthopaedic Surgery | DX: Z47.89 Encounter for other orthopedic aftercare (principal); Z98.1 Arthrodesis status | CPT/HCPCS: 72040 ==

== ENCOUNTER → 2022-08-25 08:38 | Outpatient (BNVA) | payer MEDICAID, SELFPAY | PROVIDERS: PCP Nurse Practitioner; Visit Provider Physician Assistant | DX: Z98.1 Arthrodesis status (principal) | CPT/HCPCS: 72040 ==

== ENCOUNTER → 2022-09-29 10:18 | Outpatient (BNVA) | payer MEDICAID, SELFPAY | PROVIDERS: PCP Nurse Practitioner; Visit Provider Physician Assistant | DX: Z98.1 Arthrodesis status (principal) | CPT/HCPCS: 72040 ==

== ENCOUNTER → 2022-10-27 10:00 | Outpatient (BNVA) | payer MEDICAID, SELFPAY | PROVIDERS: PCP Nurse Practitioner; Visit Provider Physician Assistant | DX: Z98.1 Arthrodesis status (principal) | CPT/HCPCS: 72040 ==